=== PATIENT | female | born 1965 | race Caucasian/White ===

== ENCOUNTER → 2022-03-27 11:05 | Outpatient (BNVA) | payer OTHER, SELFPAY | PROVIDERS: Visit Provider Podiatrist Foot & Ankle Surgery | DX: M79.672 Pain in left foot (principal); M19.072 Primary osteoarthritis, left ankle and foot | CPT/HCPCS: 73630 ==

== ENCOUNTER 2022-03-27 15:12 | Outpatient (CLI) | payer OTHER, SELFPAY | END 2022-03-27 15:13 | disposition home or self-care (01) | LOC: SPT 15:13 | PROVIDERS: Visit Provider Podiatrist Foot & Ankle Surgery | DX: Z46.89 Encounter for fitting and adjustment of other specified devices (principal); M72.2 Plantar fascial fibromatosis | CPT/HCPCS: 97760; L4397 ==